=== PATIENT | female | born 1950 | race Caucasian/White ===

== ENCOUNTER → 2017-09-21 | Outpatient (REF) | payer BC ==
[2017-09-21 13:51] LABS: FOLATE 20.4 NG/ML; VITAMIN B12 LEVEL 361 PG/ML
[2017-09-21 14:01] LABS: IRON (FE) 51 UG/DL (50-170); PERCENT SATURATION 11.7 % (13.2-45.0); TOTAL IRON BINDING CAPACITY 436 UG/DL (250-450)
== END ==
LOC: M LAB REF 13:00
DX: Z98.84 Bariatric surgery status (principal); D64.9 Anemia, unspecified
CPT/HCPCS: 82746

== ENCOUNTER → 2018-09-26 | Outpatient (REF) | payer BC ==
[2018-09-26 13:34] LABS: PERCENT SATURATION 19.8 % (13.2-45.0)
[2018-09-26 19:07] LABS: FOLATE 17.2 NG/ML
== END ==
LOC: M LAB REF 12:29
PROVIDERS: ATTEND Internal Medicine
DX: Z98.84 Bariatric surgery status (principal); D64.9 Anemia, unspecified

== ENCOUNTER → 2019-09-29 | Outpatient (REF) | payer BC ==
[2019-11-24 23:52] LABS: PERCENT SATURATION 12.3 % (13.2-45.0)
== END ==
LOC: M LAB REF 12:01
PROVIDERS: ATTEND Internal Medicine
DX: Z98.84 Bariatric surgery status (principal)

== ENCOUNTER → 2019-10-29 | Outpatient (CLI) | payer BC ==
--- NOTE | 2019-11-14 09:23 | REP ---
NON-CONTRAST CT OF THE ABDOMEN AND PELVIS: 10/29/19 CLINICAL: Left kidney stone. TECHNIQUE: Axial non-contrast images from the lung bases to the pubic symphysis with coronal and sagittal reformations. FINDINGS: Evaluation of the urinary tract system demonstrates bilateral extra renal pelvises along with 9mm non-obstructing left intrarenal calculus. No perinephric stranding, hydroureteronephrosis, or obstructing ureteral calculi identified. The bladder is normal. Liver, spleen, pancreas, and bilateral adrenal glands are normal. Evidence for prior gastric bypass surgery and cholecystectomy neck noted. The enteric system is without obstruction or acute inflammatory process. Scattered sigmoid diverticula noted without acute diverticulitis. The pelvis demonstrates normal bladder and evidence for prior hysterectomy. Multiple phleboliths noted in the pelvis. No pelvic fluid. No ascites. No free air. No adenopathy. Abdominal aorta without aneurysm. Musculoskeletal structures are intact and without acute osseous abnormality. Lung bases demonstrate chronic age related scattered scarring and intersitial changes. IMPRESSION: 1. 9mm non-obstructing left renal calculus. 2. Evidence for prior gastric bypass surgery, cholecystectomy and hysterectomy. 3. Few scattered diverticula without diverticulitis. MTDD
== END ==
LOC: M RAD 11:07
PROVIDERS: ATTEND Internal Medicine
DX: N20.0 Calculus of kidney (principal); Z98.84 Bariatric surgery status; Z90.49 Acquired absence of other specified parts of digestive tract; K57.30 Diverticulosis of large intestine without perforation or abscess without bleeding

== ENCOUNTER → 2020-12-15 | Outpatient (CLI) | payer BC ==
--- NOTE | 2020-12-15 09:03 | REP ---
INDICATION: RT HIP PAIN ? BRUSITIS VS TEAR. COMPARISON: None. TECHNIQUE: Axial T1 and T2. Sagittal T2. Coronal T1, fat suppressed proton density, fat suppressed T2 and STIR. FINDINGS: The hip joint spaces are symmetric and relatively well maintained. There is no abnormal focal chondral or subchondral signal seen arising from the femoral or acetabular component of either hip. Femoral heads are spherical in shape and symmetric in appearance. There is no hip joint effusion. The sacroiliac joints are within normal limits. There is no evidence of a mass or mass effect. The cortical and marrow signal seen throughout the pelvis is within normal limits. No abnormal signal is seen in the trochanteric tendono bursal region of either hip. Small filled few dedicated triplane imaging of the right hip shows the chondral surfaces to be smooth. There is no evidence of a gross labral signal abnormality. IMPRESSION: MRI findings are within normal limits. If labral pathology is of clinical concern consider follow-up with hip MRI arthrography. <Electronically signed by Jareth Marlow > 12/15/20 [id number]
== END ==
LOC: M RAD 11-18 10:35
PROVIDERS: ATTEND Orthopaedic Surgery
DX: M25.551 Pain in right hip (principal)

== ENCOUNTER → 2021-11-07 | Outpatient (CLI) | payer BC | LOC: M SOG 09:17 | PROVIDERS: ATTEND Physician Assistant | DX: M25.531 Pain in right wrist (principal) ==

== ENCOUNTER → 2021-11-22 | Outpatient (CLI) | payer BC ==
[~2021-11-22] MED LIST: AREDS; AREDS PO; CALC-190 PO; ESSETAB4 PO; IRON65TA2 PO; SIMV40TA20 PO
== END ==
LOC: M LABSMTC 10:26
PROVIDERS: ATTEND Anesthesiology
DX: Z11.52 Encounter for screening for COVID-19 (principal); Z20.822 Contact with and (suspected) exposure to COVID-19

== ENCOUNTER 2021-11-23 06:56 | Day surgery (SDC) | payer BC ==
[~2021-11-23] VITALS: Ht 157.5 cm; Wt 92.5 kg
[2021-11-23] MEDS ORDERED: LIDOCAINE 2% 100MG/5ML SDV (FOR ANES.) As Ordered ONE (07:15)
[2021-11-23] MEDS ORDERED: ROCURONIUM BROMIDE 50 MG/5 ML VIAL As Ordered ONE (07:15)
[2021-11-23] MEDS ORDERED: propofoL 200 MG/20 ML VIAL As Ordered ONE (07:15)
[2021-11-23] MEDS ORDERED: MIDAZOLAM INJ 2MG/2ML VIAL (J2250 PER 1MG) As Ordered ONE (07:15)
[2021-11-23] MEDS ORDERED: fentaNYL 100 MCG/2 ML INJECTION As Ordered ONE (07:15)
[2021-11-23] MEDS ORDERED: BUPIVACAINE HCL 0.25% 30ML VIAL As Ordered ONE (08:12)
[2021-11-23] MEDS ORDERED: dexameTHASONE 4 MG/ML 1ML VIAL (J1100 PER 1MG) As Ordered ONE (08:33)
[2021-11-23] MEDS ORDERED: ONDANSETRON 4MG 2ML VIAL As Ordered ONE ×2 (08:33→09:42)
[2021-11-23] MEDS ORDERED: KETOROLAC 60MG 2ML VIAL As Ordered ONE (08:37)
[2021-11-23] MEDS ORDERED: ePHEDrine SULFATE 25 MG/5 ML(5MG/ML) SYRINGE As Ordered ONE (08:38)
[2021-11-23] MEDS ORDERED: LR 1,000 ML IV SCH (09:40)
[2021-11-23] MEDS ORDERED: oxyCODONE 5MG TAB PO PRN (09:40)
[2021-11-23] MEDS ORDERED: ONDANSETRON 4MG 2ML VIAL IV PRN (09:40)
[2021-11-23] MEDS ORDERED: HYDROMORPHONE HCL 0.5 MG/ 0.5 ML SYRINGE (J1170 PER 1) IV PRN (09:40)
[2021-11-23] MEDS ORDERED: fentaNYL 100 MCG/2 ML INJECTION IV PRN (09:40)
[2021-11-23 10:33] VITALS: BP 139/72
== END 2021-11-23 10:45 | disposition home or self-care (01) ==
LOC: M SDC 06:56
PROVIDERS: ATTEND Orthopaedic Surgery Hand Surgery
DX: G56.01 Carpal tunnel syndrome, right upper limb (principal); Z79.899 Other long term (current) drug therapy; Z88.1 Allergy status to other antibiotic agents
CPT/HCPCS: 29848; 93005; J1100; J1885; J2250; J2405; J3010

== ENCOUNTER → 2022-02-21 | Outpatient (CLI) | payer BC | LOC: M SOG 14:00 | PROVIDERS: ATTEND Orthopaedic Surgery Hand Surgery | DX: G56.03 Carpal tunnel syndrome, bilateral upper limbs (principal) ==

== ENCOUNTER → 2022-03-06 | Outpatient (CLI) | payer BC ==
[~2022-03-06] MED LIST changes: -AREDS
== END ==
LOC: M LABSMTC 10:02
PROVIDERS: ATTEND Anesthesiology
DX: Z01.812 Encounter for preprocedural laboratory examination (principal)

== ENCOUNTER 2022-03-10 07:03 | Day surgery (SDC) | payer BC ==
[~2022-03-10] VITALS: Ht 157.5 cm; Wt 94.1 kg
[~2022-03-10 07:03] MED LIST changes: +BUPIVACAINE HCL 0.25% 30ML VIAL As Ordered ONE
[2022-03-10] MEDS ORDERED: LR 1,000 ML IV SCH ×2 (07:10→08:55)
[2022-03-10] MEDS ORDERED: LIDOCAINE 2% 100MG/5ML SDV (FOR ANES.) As Ordered ONE (07:53)
[2022-03-10] MEDS ORDERED: ONDANSETRON 4MG 2ML VIAL As Ordered ONE (07:53)
[2022-03-10] MEDS ORDERED: propofoL 200 MG/20 ML VIAL As Ordered ONE (07:53)
[2022-03-10] MEDS ORDERED: fentaNYL 100 MCG/2 ML INJECTION As Ordered ONE (07:54)
[2022-03-10] MEDS ORDERED: ACETAMINOPHEN 1000MG 100ML IV BAG As Ordered ONE (07:54)
[2022-03-10] MEDS ORDERED: MIDAZOLAM INJ 2MG/2ML VIAL As Ordered ONE (07:54)
[2022-03-10] MEDS ORDERED: ONDANSETRON 4MG 2ML VIAL IV PRN (08:55)
[2022-03-10] MEDS ORDERED: fentaNYL 100 MCG/2 ML INJECTION IV PRN (08:55)
[2022-03-10] MEDS ORDERED: oxyCODONE 5MG TAB PO PRN (08:55)
[2022-03-10 10:03] VITALS: BP 182/79
== END 2022-03-10 10:04 | disposition home or self-care (01) ==
LOC: M SDC 07:03
PROVIDERS: ATTEND Orthopaedic Surgery Hand Surgery
DX: G56.02 Carpal tunnel syndrome, left upper limb (principal); E78.00 Pure hypercholesterolemia, unspecified; Z79.899 Other long term (current) drug therapy
CPT/HCPCS: 29848; J0131; J1100; J2250; J2405; J3010; S0020